=== PATIENT | female | born 1965 | race Caucasian/White ===

== ENCOUNTER 2022-11-17 07:00 | Outpatient (CLI) | payer BC ==
--- NOTE | 2022-11-17 14:13 | XRAY Report ---
PROCEDURE: Wrist 4 View RT INDICATIONS: PAIN IN RIGHT WRIST TECHNIQUE: 4 views of the wrist were acquired. COMPARISON: None. FINDINGS: Bones: No fractures or dislocations. No suspicious bony lesions. Mild degenerative changes are pr esent at the first CMC joint. Scaphoid view: The scaphoid is intact. Soft tissues: No suspicious soft tissue calcifications or masses. 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 Reviewed by: Nan Fitzgerald MD on 11/17/2022 2:12 PM PDT Approved by: Nan Fitzgerald MD on 11/17/2022 2:12 PM PDT Station ID: [id number]
== END 2022-11-17 23:59 | disposition home or self-care (01) ==
LOC: DI.S 07:00
PROVIDERS: ATTEND Physician Assistant
DX: M18.11 Unilateral primary osteoarthritis of first carpometacarpal joint, right hand (principal)